=== PATIENT | male | born 1965 | race Caucasian/White ===

== ENCOUNTER → 2017-11-24 15:39 | Outpatient (CLI) | payer BC, SELFPAY ==
--- NOTE | 2017-11-24 15:50 | XR_ITS ---
XR hip RT 2-3V w/pelvis HISTORY: ITS.REASON: RT HIP PAIN ORDERING PHYSICIAN: Lien Frederick PATIENT AGE: 52 years COMPARISON: None FINDINGS: No fracture or dislocation is evident. There are minimal osteoarthritic changes of the right hip with slight decrease in the joint space medially and minimal osteophyte formation along the inferior aspect of the acetabulum. IMPRESSION: Minimal osteoarthritic change of the right
== END ==
PROVIDERS: PCP Family Medicine; Visit Provider Nurse Practitioner Family
DX: M25.551 Pain in right hip (principal)
CPT/HCPCS: 73502

== ENCOUNTER → 2017-12-08 15:46 | Outpatient (CLI) | payer BC, SELFPAY ==
--- NOTE | 2017-12-08 15:51 | MR_ITS ---
MR hip RT wo con HISTORY: Right hip pain, painful when walking. Tingling and numbness down right leg ITS.REASON: POSTERIOR PAIN OF RIGHT HIP ORDERING PHYSICIAN: Luis Armando Montero MD PATIENT AGE: 52 years COMPARISON: 11/24/2018 TECHNIQUE: Routine multiecho sequences performed without contrast FINDINGS: There are mild osteoarthritic changes of both hips. No fracture or dislocation evident. No bony destructive process.. There is a small amount fluid in both hips slightly greater on the right compared to the left. There is no evidence of avascular necrosis. There is slight increased T2 signal within the inferior aspect of the gluteus minimus and gluteus medius muscle near the insertion on the greater trochanter suggesting trochanteric bursitis. No other significant anomalies are evident. There are bilateral ovarian follicles noted. IMPRESSION: 1. Mild osteoarthritis of the hips. 2. Suspect right-sided trochanteric bursitis at the greater trochanter 3. No evidence of avascular necrosis of the hips or other acute anomaly
== END ==
PROVIDERS: Family Provider Family Medicine; PCP Family Medicine; Visit Provider Family Medicine
DX: M25.551 Pain in right hip (principal); M76.31 Iliotibial band syndrome, right leg
CPT/HCPCS: 73721

== ENCOUNTER 2023-06-05 13:04 | Outpatient (CLI) | payer BC, SELFPAY ==
--- NOTE | 2023-06-05 13:08 | MR_ITS ---
FINAL REPORT CLINICAL HISTORY: LOWER BACK PAIN LEGS GIVE OUT WHEN WALKING OR RUNNING TINGLING AND NUMBNESS DOWN BOTH LEGS FINDINGS: Multiplanar MR imaging of the lumbar spine was performed without contrast. On the sagittal T2-weighted images, disc degeneration is seen at multiple levels. There is mild rightward curvature. There is mild anterolisthesis of L3 on 4. Schmorl's nodes are seen at several levels. There is no evidence of fracture. The conus has an unremarkable appearance. L1-2: An annular bulge and facet arthropathy are present. There is mild right neural foraminal narrowing. L2-3: An annular bulge is present. Facet arthropathy and osteophytes are present. There is mild right and moderate left neural foraminal narrowing. L3-4: An annular bulge and facet arthropathy are present. There is a right paracentral disc protrusion resulting in right L4 nerve root impingement. There is moderate right and severe left neural foraminal narrowing. There is moderate central canal stenosis with an AP diameter of the thecal sac of 6 mm. L4-5: An annular bulge and facet arthropathy are present. There is a right foraminal disc protrusion resulting in right L5 nerve root impingement. There is moderate bilateral neural foraminal narrowing. There is mild central canal stenosis with an AP diameter of the thecal sac of 9 mm. L5-S1: An annular bulge is present. Facet arthropathy and osteophytes are present. There is severe bilateral neural foraminal narrowing. IMPRESSION: Right paracentral disc protrusion at L3-4 results in right L4 nerve root impingement and moderate central canal stenosis. Right foraminal disc protrusion at L4-5 results in right L5 nerve root impingement and mild central canal stenosis. Multilevel degenerative disc disease and spondylosis. Reviewed, Interpreted and Dictated by Omari Tavarez III, MD Transcribed by Yuko Marsh Authenticated and [facility]
== END 2023-06-05 23:59 ==
LOC: RAD 13:05
PROVIDERS: PCP Family Medicine; Visit Provider Orthopaedic Surgery Adult Reconstructive Orthopaedic Surgery
DX: M54.16 Radiculopathy, lumbar region (principal)
CPT/HCPCS: 72148; 76376